=== PATIENT | female | born 1975 | race Caucasian/White ===

== ENCOUNTER 2016-07-13 22:31 | Emergency (ER) | payer OTHER ==
[2016-07-13 23:28] VITALS: BP 137/88
[2016-07-14] MEDS ORDERED: IBUPROFEN 800 MG TABLET PO ONE (01:56)
[2016-07-14] MEDS ORDERED: CYCLOBENZAPRINE HCL 10 MG TABLET PO ONE (01:56)
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
== END 2016-07-14 05:06 | disposition home or self-care (01) ==
LOC: ER 22:31
DX: M54.2 Cervicalgia (principal); M54.6 Pain in thoracic spine; V89.2XXA Person injured in unspecified motor-vehicle accident, traffic, initial encounter
CPT/HCPCS: 72050; 72070; 99283